=== PATIENT | male | born 1955 | race Caucasian/White ===

== ENCOUNTER → 2016-09-11 | Day surgery (SDC) | payer OTHER ==
[~2016-09-11] MED LIST: ACETAMINOPHEN/HYDROcodone 325 MG/5 MG TAB ONE; BACITRACIN IM FOR SOLN 50,000 UNIT VIAL ONE; BACT2OIN TOP; BUPIVACAINE/EPINEPHRINE 0.25% 50 ML VIAL ONE; DOXY100T PO; GENTAMICIN SULFATE 80 MG/2 ML VIAL ONE; KETOROLAC TROMETHAMINE 30 MG/ML (IVP) VIAL IV PUSH ONE; LACTATED RINGER'S 1000 ML INJ 1,000 ML ONE; MEPERIDINE HCL 50 MG/ML VIAL ONE; MIDAZOLAM HCL 2 MG/2 ML VIAL ONE; ONDANSETRON HCL 4 MG/2 ML VIAL IV PUSH ONE; PROPOFOL 200 MG/20 ML AMP IV ONE; SODIUM CHLOR 0.9% 250 ML INJ 250 ML IV ONE; SODIUM CHLORIDE 0.9% 20 ML VIAL ONE; SULF1TAB47 PO; VANCOMYCIN HCL 1000 MG VIAL ONE; Z.0.NO CURRENT MEDS; ceFAZolin 2 GM PREMIX 50 ML ONE; ceFAZolin INJ 1,000 MG VIAL ONE
--- NOTE | 2016-09-11 09:10 | TN ---
cc: YUNIEL VILLELA M.D. DATE OF SURGERY 09/11/2016 PREOPERATIVE DIAGNOSIS Right knee medial compartment severe osteoarthritis, genu varus deformity. POSTOPERATIVE DIAGNOSIS Right knee medial compartment severe osteoarthritis, genu varus deformity. PROCEDURE Right knee medial unicondylar arthroplasty, partial patellectomy SURGEON Gretchen Villela MD ASSESSMENT Dyan Villela MD, Nayla Hogue PA-C SPECIMEN None ESTIMATED BLOOD LOSS Minimum COMPLICATIONS None ANESTHESIA General DRAINS One TOURNIQUET TIME 47 minutes at 225 mmHg CONDITION Stable PLAN OF ACTIVITY Per orders. PROCEDURE My billing and accounting staff assistant, Cresencio Villela MD was present for the entire surgical case. He was medically necessary for the entire case because of the complexity case and to facilitate the performance of the procedure. The [employer] at the back table was not a skill set for this case to manipulate the instruments e.g. the multiple different types of soft tissue tractors, trial implants and permanent implants including bone cement. The patient was brought into the operating room and had satisfactory general endotracheal anesthesia by the Department of Anesthesia. The right lower extremity was prepped and draped in the usual sterile manner. The extremity was exsanguinated by Héctor wrap and tourniquet was inflated to 225 mmHg. Anterior medial exposure to the knee was made. A paramedian capsulotomy was performed. 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 Partial patellectomy was performed using an oscillating saw longitudinally. The remaining portion of the medial meniscus was removed. The medial portion of the prepatellar fat pad was also removed. Anterior cruciate ligament was preserved. The patient was found to have severe osteoarthritis involving the medial compartment. Using the StelKast unicondylar arthroplasty, the guide was used in the distal femur. The posterior femoral condyle was cut. The proximal tibia was contoured to accept a #2 6.5 mm using a bur and the distal femur was prepared to accept a #2 right medial femoral component. Medial femoral osteophytes were removed. The patient was found to have excellent correction of his varus deformity and excellent balance in both flexion/extension. All trial components were removed. Preparation for cementing was made. One package of high viscosity Biomet bone cement was used. Initially the tibial component was cemented which was a #2, 6.5 mm tibial component, then the femoral component was cemented using a #2 right medial femoral component. All excess bone cement was removed. The bone cement was allowed to harden for 13 minutes. The tourniquet was then deflated. All bleeders were individually coagulated. The wound itself was dry. The knee was injected with 50 cc of 0.25% Marcaine with epinephrine. The knee was then irrigated with copious amounts of sterile saline antibiotic solution. The wound was closed over an eighth inch Hemovac drain. The capsule was repaired with #2 Tycron sutures and was closed in layers with 2-0 Vicryl. Skin was approximated with running subcuticular 3-0 Vicryl. Steri-Strips were applied. The patient tolerated the procedure well and arrived in the Recovery Room in stable and satisfactory condition. MD ROXANNE Johnson/CHRIS /8:41 AM 8:50 AM
== END | disposition home or self-care (01) ==
LOC: ESDC 06:09
PROVIDERS: ATTEND Orthopaedic Surgery Orthopaedic Surgery of the Spine
DX: M17.11 Unilateral primary osteoarthritis, right knee (principal); M21.161 Varus deformity, not elsewhere classified, right knee
CPT/HCPCS: 01400; 27446; C1776; J0690; J1580; J1885; J2175; J2250; J2405; J3010; J3370; J7050; J7120

== ENCOUNTER → 2016-11-20 | Day surgery (SDC) | payer OTHER ==
[~2016-11-20] MED LIST changes: -ACETAMINOPHEN/HYDROcodone 325 MG/5 MG TAB ONE; -BACITRACIN IM FOR SOLN 50,000 UNIT VIAL ONE; -BUPIVACAINE/EPINEPHRINE 0.25% 50 ML VIAL ONE; -GENTAMICIN SULFATE 80 MG/2 ML VIAL ONE; -KETOROLAC TROMETHAMINE 30 MG/ML (IVP) VIAL IV PUSH ONE; -MEPERIDINE HCL 50 MG/ML VIAL ONE; -MIDAZOLAM HCL 2 MG/2 ML VIAL ONE; -ONDANSETRON HCL 4 MG/2 ML VIAL IV PUSH ONE; -PROPOFOL 200 MG/20 ML AMP IV ONE; -SODIUM CHLOR 0.9% 250 ML INJ 250 ML IV ONE; -SODIUM CHLORIDE 0.9% 20 ML VIAL ONE; -ceFAZolin INJ 1,000 MG VIAL ONE
== END | disposition home or self-care (01) ==
LOC: ESDC 06:03
PROVIDERS: ATTEND Orthopaedic Surgery Orthopaedic Surgery of the Spine
DX: M17.12 Unilateral primary osteoarthritis, left knee (principal)
CPT/HCPCS: J0690; J3370; J7120